=== PATIENT | female | born 1990 | race Caucasian/White ===

== ENCOUNTER 2016-05-26 00:12 | Emergency (ER) | payer OTHER ==
[~2016-05-26] VITALS: Ht 172.7 cm; Wt 114.5 kg
[~2016-05-26 00:12] MED LIST: ADVAIR 250/501 DISK IH; AMOXICILLIN875 MG PO; ATARAX,VISTARIL25 MG PO; AUGMENTIN875 MG PO; Bactrim,Septra DS 80 PO; DICYCLOMINE HCL10 MG; DUONEB3 ML IH; FLEXERIL10 MG PO; INDOCIN50 MG PO; LATUDA20 MG PO; LEVAQUIN750 MG PO; LORTAB 5-325 M1 EACH PO; MACROBID100 MG PO; MEDROL DOSEPAK4 MG PO; METHADONE HCL PO; METHADONE10 MG PO; MOTRIN800 MG PO; NAPROSYN500 MG PO; NOHOMEMEDS; OXCARBAZEPINE300 MG PO; PEN-VEE K,VEET500 MG PO; PERIDEX1 ML MM; PREDNISONE20 MG PO; PREDNISONE50 MG; PRILOSEC20 MG PO; PROMETHAZINE HC25 M1; PROMETHAZINE HC50 M1; PROVENTIL,2.5 MG/3 M IH; Phenergan PO; Protonix PO; Proventil,Ventolin H IH; SERTRALINE HCL25 MG PO; TRAMADOL HCL50 MG PO; ULTRACET1 TABLET PO; ULTRAM50 MG PO; VALIUM5 MG PO; ZITHROMAX Z-PA250 MG PO; ZITHROMAX500 MG PO; ZOFRAN ODT4 MG PO; ZOFRAN ODT8 MG PO; ZOFRAN4 MG PO; Zantac PO; [UNRECOGNIZED DRUG - OTHER]
[2016-05-26] MEDS ORDERED: SKELAXIN800 MG PO (01:40)
[2016-05-26] MEDS ORDERED: ULTRAM50 MG PO (01:40)
[2016-05-26 02:00] VITALS: BP 133/99
== END 2016-05-26 02:00 | disposition home or self-care (01) ==
LOC: EME 00:12
DX: M25.512 Pain in left shoulder (principal); Z88.5 Allergy status to narcotic agent; Z88.6 Allergy status to analgesic agent; F17.200 Nicotine dependence, unspecified, uncomplicated
CPT/HCPCS: 99281; 99284

== ENCOUNTER 2016-08-03 10:32 | Emergency (ER) | payer OTHER ==
[~2016-08-03] VITALS: Ht 172.7 cm; Wt 115.8 kg
[~2016-08-03 10:32] MED LIST changes: +SKELAXIN800 MG PO
[2016-08-03 12:04] LABS: ADD MIUA? YES; BILIRUBIN NEGATIVE; BLOOD NEGATIVE; COLOR YELLOW ((YELLOW)); GLUCOSE (STRIP) NEGATIVE; KETONES 5; LEUKOCYTES NEGATIVE; NITRITE NEGATIVE; PROTEIN (STRIP) 30; UROBILINOGEN 0.2 MG/DL (0.2-1.0)
[2016-08-03 12:08] LABS: BACTERIA NONE SEEN /HPF; EPITHELIAL CELLS 2+ /HPF; MUCUS 2+ /LPF; RED BLOOD CELLS 0-5 /HPF (0-5); WHITE BLOOD CELLS 0-5 /HPF (0-5)
[2016-08-03 12:10] LABS: HEMATOCRIT 43.2 % (36.0-46.0); MCH 31.5 PG (29.0-34.0); MCHC 33.6 G/DL (30.0-36.0); MCV 93.7 FL (83-99); MEAN PLAT.VOLUME 10.7 uM^3 (9.5-12.4); PLATELET COUNT 290 K/uL (156-360); RBC DIS.WIDTH-SD 44.5 % (39-53); RED BLOOD COUNT 4.61 M/uL (3.80-5.20); WHITE BLOOD COUNT 6.9 K/uL (4.1-10.2)
[2016-08-03 12:12] LABS: AMPHETAMINE NEGATIVE (500 ng/mL); BENZODIAZEPINES PRESUMPTIVE POSITIVE (150 ng/mL); COCAINE NEGATIVE (150 ng/mL); METHADONE NEGATIVE (200 ng/mL); METHAMPHETAMINE NEGATIVE (500 ng/mL); OPIATES (MORPHINE) NEGATIVE (100 ng/mL); PHENCYCLIDINE NEGATIVE (25 ng/mL); THC CANNABINOIDS NEGATIVE (50 ng/mL); TRICYCLIC ANTIDEPRESSANTS NEGATIVE (300 ng/mL)
[2016-08-03 12:13] LABS: ADD MEDTOX COMMENT Y; BARBITURATES NEGATIVE (200 ng/mL); INTERNAL CONTROLS VALID? YES; OXYCODONE PRESUMPTIVE POSITIVE (100 ng/mL); PROPOXYPHENE NEGATIVE (300 ng/mL)
[2016-08-03 12:33] LABS: CHLORIDE 110 mEq/L (99-109); POTASSIUM 3.7 mEq/L (3.7-5.4); SODIUM 141 mEq/L (136-147)
[2016-08-03 12:35] LABS: GLUCOSE 72 mg/dL (70-99)
[2016-08-03 12:36] LABS: ANION GAP 11 MEQ/L (2-14)
[2016-08-03 12:37] LABS: TOTAL BILIRUBIN 0.4 mg/dL (0.0-1.0)
[2016-08-03 12:38] LABS: ALKALINE PHOSPHATASE 66 IU/L (3-129)
[2016-08-03 12:39] LABS: GFR ESTIMATE (CALCULATED) > 59 mL/min/
[2016-08-03 12:40] LABS: UREA NITROGEN (BUN) 14 mg/dL (9-23)
[2016-08-03 12:55] LABS: BENZODIAZEPINES, URINE SCREEN POSITIVE (200 ng/mL)
[2016-08-03] MEDS ORDERED: MECLIZINE HCL25 MG PO (13:28)
[2016-08-03 13:31] LABS: QUANTITATIVE HCG < 4.0 MIU/ML
[2016-08-03 13:40] VITALS: BP 130/86
== END 2016-08-03 13:41 | disposition home or self-care (01) ==
LOC: EME 10:32
PROVIDERS: Nurse Practitioner Family
DX: R42 Dizziness and giddiness (principal); D68.0 Von Willebrand disease; J45.909 Unspecified asthma, uncomplicated; Z88.5 Allergy status to narcotic agent; Z88.6 Allergy status to analgesic agent; F17.200 Nicotine dependence, unspecified, uncomplicated
CPT/HCPCS: 80053; 81003; 84702; 84999; 85027; 93005; 99281; 99283

== ENCOUNTER 2016-08-27 21:57 | Emergency (ER) | payer OTHER ==
[~2016-08-27] VITALS: Ht 172.7 cm; Wt 113.6 kg
[~2016-08-27 21:57] MED LIST changes: +MECLIZINE HCL25 MG PO
[2016-08-27] MEDS ORDERED: NAPROSYN500 MG PO (22:35)
[2016-08-27] MEDS ORDERED: AMOXICILLIN500 MG PO (22:35)
[2016-08-27 23:11] VITALS: BP 133/87
== END 2016-08-27 23:12 | disposition home or self-care (01) ==
LOC: EME 21:57
DX: K04.7 Periapical abscess without sinus (principal)
CPT/HCPCS: 99281; 99283

== ENCOUNTER 2016-10-11 22:53 | Emergency (ER) | payer OTHER ==
[~2016-10-11] VITALS: Ht 172.7 cm; Wt 114.3 kg
[~2016-10-11 22:53] MED LIST changes: +AMOXICILLIN500 MG PO
[2016-10-11] MEDS ORDERED: SUBOXONE 8 MG-1 EAC2 SL (23:18)
[2016-10-11] MEDS ORDERED: METAXALONE800 MG PO (23:19)
[2016-10-11] MEDS ORDERED: FLOVENT DISKUS1 DISK IH (23:19)
[2016-10-11] MEDS ORDERED: VENTOLIN HFA18 GM IH (23:19)
[2016-10-12 00:23] LABS: HEMATOCRIT 43.8 % (36.0-46.0); MCH 31.1 PG (29.0-34.0); MCHC 33.8 G/DL (30.0-36.0); PLATELET COUNT 302 K/uL (156-360); RBC DIS.WIDTH-CV 11.9 % (11.8-14.6); RBC DIS.WIDTH-SD 40.5 % (39-53); RED BLOOD COUNT 4.76 M/uL (3.80-5.20); WHITE BLOOD COUNT 6.7 K/uL (4.1-10.2)
[2016-10-12 00:35] LABS: CHLORIDE 104 mEq/L (99-109); POTASSIUM 4.2 mEq/L (3.7-5.4); SODIUM 138 mEq/L (136-147)
[2016-10-12 00:37] LABS: GLUCOSE 119 mg/dL (70-99)
[2016-10-12 00:38] LABS: ANION GAP 9 MEQ/L (2-14)
[2016-10-12 00:39] LABS: TOTAL BILIRUBIN 0.6 mg/dL (0.0-1.0)
[2016-10-12 00:40] LABS: ALKALINE PHOSPHATASE 71 IU/L (3-129)
[2016-10-12 00:41] LABS: GFR ESTIMATE (CALCULATED) > 59 mL/min/
[2016-10-12 00:42] LABS: UREA NITROGEN (BUN) 10 mg/dL (9-23)
[2016-10-12 00:51] LABS: QUANTITATIVE HCG < 4.0 MIU/ML
[2016-10-12 02:11] VITALS: BP 136/93
== END 2016-10-12 02:12 | disposition home or self-care (01) ==
LOC: EXP 22:53 → EME 22:53 → EXP 10-12 02:12
PROVIDERS: Physician Assistant
DX: R51 Headache (principal); R20.2 Paresthesia of skin; F17.200 Nicotine dependence, unspecified, uncomplicated; Z88.6 Allergy status to analgesic agent
CPT/HCPCS: 80053; 81003; 84443; 84702; 85027; 99281; 99284; J1200; J1885; J2765; J7030

== ENCOUNTER 2016-11-12 14:33 | Emergency (ER) | payer OTHER ==
[~2016-11-12] VITALS: Ht 172.7 cm; Wt 113.7 kg
[~2016-11-12 14:33] MED LIST changes: +FLOVENT DISKUS1 DISK IH; +METAXALONE800 MG PO; +SUBOXONE 8 MG-1 EAC2 SL; +VENTOLIN HFA18 GM IH
[2016-11-12 15:11] VITALS: BP 129/87
== END 2016-11-12 16:15 | disposition left against medical advice (07) ==
LOC: EME 14:33
DX: N93.9 Abnormal uterine and vaginal bleeding, unspecified (principal); Z53.21 Procedure and treatment not carried out due to patient leaving prior to being seen by health care provider

== ENCOUNTER 2016-11-12 18:02 | Emergency (ER) | payer OTHER ==
[~2016-11-12] VITALS: Ht 172.7 cm; Wt 113.9 kg
[2016-11-12 18:36] VITALS: BP 130/89
[2016-11-12 21:04] LABS: HEMATOCRIT 45.7 % (36.0-46.0); MCH 30.8 PG (29.0-34.0); MCHC 33.5 G/DL (30.0-36.0); MCV 92.1 FL (83-99); MEAN PLAT.VOLUME 9.8 uM^3 (9.5-12.4); PLATELET COUNT 403 K/uL (156-360); RBC DIS.WIDTH-CV 12.8 % (11.8-14.6); RBC DIS.WIDTH-SD 43.3 % (39-53); RED BLOOD COUNT 4.96 M/uL (3.80-5.20); WHITE BLOOD COUNT 11.6 K/uL (4.1-10.2)
[2016-11-12 21:14] LABS: CHLORIDE 108 mEq/L (99-109); POTASSIUM 3.8 mEq/L (3.7-5.4); SODIUM 139 mEq/L (136-147)
[2016-11-12 21:16] LABS: GLUCOSE 93 mg/dL (70-99)
[2016-11-12 21:18] LABS: ANION GAP 11 MEQ/L (2-14); TOTAL BILIRUBIN 0.5 mg/dL (0.0-1.0)
[2016-11-12 21:20] LABS: ALKALINE PHOSPHATASE 71 IU/L (3-129); GFR ESTIMATE (CALCULATED) > 59 mL/min/
[2016-11-12 21:21] LABS: UREA NITROGEN (BUN) 12 mg/dL (9-23)
[2016-11-12 21:31] LABS: QUANTITATIVE HCG < 4.0 MIU/ML
[2016-11-12 21:35] LABS: ADD MIUA? YES; BILIRUBIN NEGATIVE; BLOOD SMALL; COLOR YELLOW ((YELLOW)); GLUCOSE (STRIP) NEGATIVE; KETONES 5; LEUKOCYTES NEGATIVE; NITRITE NEGATIVE; PROTEIN (STRIP) NEGATIVE; SPECIFIC GRAVITY 1.011 (1.000-1.030); UROBILINOGEN 0.2 MG/DL (0.2-1.0)
[2016-11-12 21:43] LABS: BACTERIA RARE /HPF; EPITHELIAL CELLS RARE /HPF; MUCUS TRACE /LPF; RED BLOOD CELLS 0-5 /HPF (0-5); UCUL ADDED? NO; WHITE BLOOD CELLS 0-5 /HPF (0-5)
== END 2016-11-12 23:23 | disposition left against medical advice (07) ==
LOC: EME 18:02
DX: N83.202 Unspecified ovarian cyst, left side (principal); N93.9 Abnormal uterine and vaginal bleeding, unspecified; D68.0 Von Willebrand disease; J45.909 Unspecified asthma, uncomplicated; F11.20 Opioid dependence, uncomplicated; F17.210 Nicotine dependence, cigarettes, uncomplicated; F41.9 Anxiety disorder, unspecified; F32.9 Major depressive disorder, single episode, unspecified
CPT/HCPCS: 76856; 80053; 81003; 84702; 85027; 99281; 99284

== ENCOUNTER 2016-12-24 22:03 | Emergency (ER) | payer OTHER ==
[~2016-12-24] VITALS: Ht 172.7 cm; Wt 120.2 kg
[2016-12-24 22:40] LABS: HEMATOCRIT 41.7 % (36.0-46.0); MCHC 32.6 G/DL (30.0-36.0); MEAN PLAT.VOLUME 10.3 uM^3 (9.5-12.4); PLATELET COUNT 263 K/uL (156-360); RBC DIS.WIDTH-CV 13.4 % (11.8-14.6); RBC DIS.WIDTH-SD 47.5 % (39-53); RED BLOOD COUNT 4.39 M/uL (3.80-5.20); WHITE BLOOD COUNT 7.1 K/uL (4.1-10.2)
[2016-12-24 22:54] LABS: CHLORIDE 105 mEq/L (99-109); POTASSIUM 4.1 mEq/L (3.7-5.4); SODIUM 138 mEq/L (136-147)
[2016-12-24 22:55] LABS: GLUCOSE 96 mg/dL (70-99)
[2016-12-24 22:57] LABS: ANION GAP 10 MEQ/L (2-14)
[2016-12-24 22:59] LABS: GFR ESTIMATE (CALCULATED) > 59 mL/min/
[2016-12-24 23:00] LABS: UREA NITROGEN (BUN) 12 mg/dL (9-23)
[2016-12-24 23:01] LABS: TROP-I INTERPRETATION NEGATIVE; TROPONIN-I < 0.01 ng/mL (0.0-0.30)
[2016-12-25 00:05] LABS: D-DIMER ELISA < 150.00 ng/mLDDU (<230)
[2016-12-25 00:41] LABS: TROP-I INTERPRETATION NEGATIVE; TROPONIN-I < 0.01 ng/mL (0.0-0.30)
[2016-12-25 01:01] VITALS: BP 102/76
== END 2016-12-25 01:03 | disposition home or self-care (01) ==
LOC: EME 22:03
PROVIDERS: Emergency Medicine
DX: R07.89 Other chest pain (principal); J20.9 Acute bronchitis, unspecified; J45.909 Unspecified asthma, uncomplicated; D68.0 Von Willebrand disease; F41.9 Anxiety disorder, unspecified; F32.9 Major depressive disorder, single episode, unspecified; F17.200 Nicotine dependence, unspecified, uncomplicated; F11.20 Opioid dependence, uncomplicated; Z71.6 Tobacco abuse counseling; G47.30 Sleep apnea, unspecified
CPT/HCPCS: 71020; 80048; 83880; 84484; 85027; 85379; 93005; 94640; 99281; 99284

== ENCOUNTER 2016-12-27 15:37 | Emergency (ER) | payer OTHER ==
[~2016-12-27] VITALS: Ht 172.7 cm; Wt 118.1 kg
[2016-12-27 15:47] VITALS: BP 119/83
== END 2016-12-27 18:39 | disposition home or self-care (01) ==
LOC: EME 15:37 → EXP 15:37
DX: S76.912A Strain of unspecified muscles, fascia and tendons at thigh level, left thigh, initial encounter (principal); X50.1XXA Overexertion from prolonged static or awkward postures, initial encounter; D68.0 Von Willebrand disease; F17.200 Nicotine dependence, unspecified, uncomplicated; Z88.6 Allergy status to analgesic agent
CPT/HCPCS: 99281; 99282

== ENCOUNTER → 2017-01-30 | Outpatient (CLI) | payer OTHER | END | disposition home or self-care (01) | LOC: RES 07:39 | DX: J45.40 Moderate persistent asthma, uncomplicated (principal) | CPT/HCPCS: 94070 ==

== ENCOUNTER 2017-03-29 21:57 | Emergency (ER) | payer OTHER ==
[~2017-03-29] VITALS: Ht 172.7 cm; Wt 132.6 kg
[2017-03-29] MEDS ORDERED: FLONASE16 G1 BOTH NARES (22:25)
[2017-03-29] MEDS ORDERED: PREDNISONE20 MG PO (22:25)
[2017-03-29] MEDS ORDERED: MUCINEX D ER T1 EACH PO (22:25)
[2017-03-29] MEDS ORDERED: ANTIVERT25 MG PO (22:28)
[2017-03-29 23:09] VITALS: BP 137/91
== END 2017-03-29 23:16 | disposition home or self-care (01) ==
LOC: EME 21:57
DX: H65.01 Acute serous otitis media, right ear (principal); H91.91 Unspecified hearing loss, right ear; F17.200 Nicotine dependence, unspecified, uncomplicated; J45.909 Unspecified asthma, uncomplicated
CPT/HCPCS: 99281; 99284; J7512

== ENCOUNTER 2017-04-26 15:23 | Emergency (ER) | payer OTHER ==
[~2017-04-26] VITALS: Ht 172.7 cm; Wt 139.8 kg
[~2017-04-26 15:23] MED LIST changes: +ANTIVERT25 MG PO; +FLONASE16 G1 BOTH NARES; +MUCINEX D ER T1 EACH PO
[2017-04-26 18:12] LABS: EOSINOPHIL (%) 6.2 % (0-5); EOSINOPHIL COUNT 0.3 K/uL (0-0.3); HEMATOCRIT 39.1 % (36.0-46.0); IMMATURE GRANULOCYTE (%) 0.2 % (0.0-0.7); INSTRUMENT ABS NEUTROPHIL CT 2.2 K/uL; LYMPHOCYTE COUNT 2.1 K/uL (1.0-2.8); MCH 30.9 PG (29.0-34.0); MCV 93.8 FL (83-99); MEAN PLAT.VOLUME 9.7 uM^3 (9.5-12.4); MONOCYTE (%) 9.1 % (3-12); MONOCYTE COUNT 0.5 K/uL (0-0.8); NEUTROPHIL (%) 43.5 % (45-76); NEUTROPHIL COUNT 2.2 K/uL (1.8-6.4); PLATELET COUNT 243 K/uL (156-360); RBC DIS.WIDTH-CV 12.3 % (11.8-14.6); RBC DIS.WIDTH-SD 42.5 % (39-53); RED BLOOD COUNT 4.17 M/uL (3.80-5.20); WHITE BLOOD COUNT 5.2 K/uL (4.1-10.2)
[2017-04-26 18:18] LABS: INTER. NORMALIZED RATIO 0.9; PROTHROMBIN TIME 10.5 SEC (10.2-12.9)
[2017-04-26 18:21] LABS: CHLORIDE 101 mEq/L (99-109); POTASSIUM 4.4 mEq/L (3.7-5.4); PTT 33.5 SEC (25-37); SODIUM 138 mEq/L (136-147)
[2017-04-26 18:23] LABS: GLUCOSE 92 mg/dL (70-99)
[2017-04-26 18:24] LABS: ANION GAP 7 MEQ/L (2-14)
[2017-04-26 18:26] LABS: GFR ESTIMATE (CALCULATED) > 59 mL/min/
[2017-04-26 18:27] LABS: UREA NITROGEN (BUN) 6 mg/dL (9-23)
[2017-04-26 18:34] LABS: TROP-I INTERPRETATION NEGATIVE; TROPONIN-I < 0.01 ng/mL (0.0-0.30)
[2017-04-26 19:45] VITALS: BP 130/88
== END 2017-04-26 19:45 | disposition home or self-care (01) ==
LOC: EME 15:23
PROVIDERS: Physician Assistant
DX: R60.0 Localized edema (principal); R07.9 Chest pain, unspecified; J45.909 Unspecified asthma, uncomplicated; G47.30 Sleep apnea, unspecified; D68.0 Von Willebrand disease; F41.9 Anxiety disorder, unspecified; F32.9 Major depressive disorder, single episode, unspecified; F17.200 Nicotine dependence, unspecified, uncomplicated; Z88.6 Allergy status to analgesic agent; Z88.8 Allergy status to other drugs, medicaments and biological substances
CPT/HCPCS: 71020; 80048; 84484; 85025; 85379; 85610; 85730; 93005; 99281; 99283

== ENCOUNTER 2017-07-03 17:57 | Emergency (ER) | payer OTHER ==
[~2017-07-03] VITALS: Ht 172.7 cm; Wt 135.1 kg
[2017-07-03] MEDS ORDERED: CORTISONE28 GM TP (19:58)
[2017-07-03] MEDS ORDERED: GABAPENTIN300 MG PO (20:18)
[2017-07-03 20:19] VITALS: BP 136/84
[2017-07-03] MEDS ORDERED: QVAR 80 MCG IN7.3 GM IH (20:19)
== END 2017-07-03 20:20 | disposition home or self-care (01) ==
LOC: EME 17:57
DX: L30.9 Dermatitis, unspecified (principal); J45.909 Unspecified asthma, uncomplicated; D68.0 Von Willebrand disease; F32.9 Major depressive disorder, single episode, unspecified; F41.9 Anxiety disorder, unspecified; G47.30 Sleep apnea, unspecified; F17.200 Nicotine dependence, unspecified, uncomplicated; Z88.6 Allergy status to analgesic agent
CPT/HCPCS: 99281; 99283

== ENCOUNTER 2017-11-04 18:40 | Emergency (ER) | payer OTHER ==
[~2017-11-04] VITALS: Ht 172.7 cm; Wt 136.9 kg
[~2017-11-04 18:40] MED LIST changes: +CORTISONE28 GM TP; +GABAPENTIN300 MG PO; +QVAR 80 MCG IN7.3 GM IH
[2017-11-04 20:47] VITALS: BP 123/82
== END 2017-11-04 20:48 | disposition home or self-care (01) ==
LOC: EME 18:40
DX: S40.021A Contusion of right upper arm, initial encounter (principal); W22.8XXA Striking against or struck by other objects, initial encounter; D68.0 Von Willebrand disease; Z88.6 Allergy status to analgesic agent
CPT/HCPCS: 99281; 99283